=== PATIENT | female | born 1985 | race Caucasian/White ===

== ENCOUNTER 2018-02-19 12:09 | Emergency (ER) | payer OTHER, MEDICAID ==
[~2018-02-19] VITALS: Ht 154.9 cm; Wt 68.0 kg
[~2018-02-19 12:09] MED LIST: AFRIN15 ML NS; BACTRIM DS TAB1 EACH PO; FLEXERIL PO; IBUPROFEN 800800 MG PO; LEXAPRO 10 MG T10 M2 PO; MICROGESTIN FE1 EAC1; NOHOMEMEDICATIONS; NORCO 5-325 TA1 EACH PO; ONDANSETRON HCL4 M2 PO; PERCOCET 5-3251 EACH PO; PERCOCET 7.5-31 EACH PO; PHENERGAN 25 MG25 M1 PO; PHENERGAN25 M2 RC; PROMETHAZINE D480 ML PO; TESSALON PERLE100 MG PO; ULTRAM 50MG TAB50 MG PO; XANAX 0.25 MG0.25 MG PO; ZPAK PO
[2018-02-19] MEDS ORDERED: XANAX 0.5 MG0.5 MG PO (12:30)
[2018-02-19] MEDS ORDERED: CLEOCIN HCL150 MG PO (12:53)
[2018-02-19] MEDS ORDERED: ACETAMINOPHEN-1 EAC1 PO (12:53)
[2018-02-19] MEDS ORDERED: LIDOCAINE VISC100 ML PO (12:53)
[2018-02-19] MEDS ORDERED: ZOFRAN4 MG PO (12:59)
[2018-02-19 13:35] VITALS: BP 124/88
== END 2018-02-19 13:35 | disposition home or self-care (01) ==
LOC: M.ERS 12:09
DX: K08.89 Other specified disorders of teeth and supporting structures (principal); R11.0 Nausea; F32.9 Major depressive disorder, single episode, unspecified; F41.9 Anxiety disorder, unspecified; Z88.0 Allergy status to penicillin; Z88.5 Allergy status to narcotic agent

== ENCOUNTER 2020-06-30 23:05 | Emergency (ER) | payer OTHER ==
[~2020-06-30] VITALS: Ht 170.2 cm; Wt 83.9 kg
[~2020-06-30 23:05] MED LIST changes: +ACETAMINOPHEN-1 EAC1 PO; +CLEOCIN HCL150 MG PO; +LIDOCAINE VISC100 ML PO; +XANAX 0.5 MG0.5 MG PO; +ZOFRAN4 MG PO
[2020-06-30 23:21] LABS: URINE BILIRUBIN NEGATIVE (Negative); URINE BLOOD TRACE (Negative); URINE CLARITY CLEAR; URINE COLOR STRAW; URINE GLUCOSE-RANDOM 1+ (Negative); URINE KETONES TRACE (Negative); URINE LEUKOCYTES-REFLEX NEGATIVE (Negative); URINE NITRITE-REFLEX NEGATIVE (Negative); URINE PROTEIN NEGATIVE (Negative); URINE UROBILINOGEN 0.2 E.U./dl (0.2-1.0)
[2020-06-30 23:28] LABS: AMP/METHAMP Negative (Negative); BARBITURATES Negative (Negative); BENZODIAZEPINES POSITIVE (Negative); COCAINE Negative (Negative); METHADONE Negative (Negative); OPIATES Negative (Negative); PCP Negative (Negative); THC Negative (Negative)
[2020-06-30 23:40] LABS: ABSOLUTE EOSINOPHILS 0.1 thou/uL (0.0-0.7); ABSOLUTE LYMPHOCYTES 4.4 thou/uL (0.8-5.3); ABSOLUTE MONOCYTES 0.8 thou/uL (0.0-1.2); ABSOLUTE NEUTROPHILS 8.6 thou/uL (1.6-8.1); BASOPHILS 0.3 %; EOSINOPHILS 0.9 %; HEMATOCRIT 41.5 % (37.0-47.0); HEMOGLOBIN 13.9 gm/dL (12.0-15.0); LYMPHOCYTES 31.3 %; MCH 30.9 pg (26.0-34.0); MCHC 33.5 g/dL (28.0-37.0); MCV 92.1 fL (80.0-100.0); MONOCYTES 5.9 %; MPV 8.8 fl. (7.2-11.1); NUCLEATED RBCS 0 /100WBC; PLATELET COUNT* 284 thou/uL (150-400); POLYS 61.6 %; RBC 4.51 mil/uL (4.20-5.00); RDW-CV 12.4 % (10.5-14.5)
[2020-06-30 23:45] LABS: PROTIME 10.4 Seconds (9.20-11.50)
[2020-06-30 23:48] LABS: BE -9.3 mmol/L (-2 to +3); PCO2 34.5 mmHg (35.0-45.0)
[2020-06-30 23:50] LABS: PO2 207.5 mmHg (75.0-100.0); pH 7.291 (7.340-7.450)
[2020-06-30 23:53] LABS: CALCIUM 8.5 mg/dL (8.5-10.1); CREATININE 0.9 mg/dL (0.6-1.3)
[2020-06-30 23:54] LABS: ALCOHOL 10 mg/dL (<10); SALICYLATE < 2.8 mg/dL (2.8-20.0)
[2020-06-30 23:56] LABS: ACETAMINOPHEN < 2 ug/mL (10-30)
[2020-07-01 00:03] LABS: ALBUMIN 4.2 g/dL (3.4-5.0); TOTAL BILIRUBIN 0.4 mg/dL (<0.1-1.0); TOTAL PROTEIN 8.3 g/dL (6.4-8.2)
[2020-07-01 02:50] VITALS: BP 147/90
--- NOTE | 2020-07-01 12:47 | EKG ---
[place] [address] ELECTROCARDIOGRAM REPORT Name: PADMINI MCDONALD Room: [facility]#: [id number] Admission: 06/30/20 Attend Phys: Discharge: 07/01/20 Date of : 87 Date of Service: 06/30/202302 Report #: [id number] THIS REPORT FOR: //name// [facility] ED Test Date: 2020-06-30 Test Time: 23:03:26 Pat Name: PADMINI MCDONALD Department: Room: Gender: Business Office Representative: [place] : 1985 Requested By: Lanny Butts Order Number: [id number] MD: Doug Prabhakar Measurements Intervals [place] Rate: 117 P: 16 [place]: 141 QRS: -17 QRSD: 106 T: 57 QT: 351 QTc: 490 Interpretive Statements Sinus tachycardia Borderline left axis deviation RSR' in V1 or V2, probably normal variant Borderline prolonged QT interval No previous ECG available for comparison Electronically Signed On 07-01-2020 12:47:30 [employer]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
== END 2020-07-01 02:50 | disposition home or self-care (01) ==
LOC: M.ERS 23:05
PROVIDERS: Emergency Medicine
DX: T42.4X1A Poisoning by benzodiazepines, accidental (unintentional), initial encounter (principal); Z20.828 Contact with and (suspected) exposure to other viral communicable diseases; R40.4 Transient alteration of awareness; R79.1 Abnormal coagulation profile; Z88.0 Allergy status to penicillin; Z88.6 Allergy status to analgesic agent; Y92.89 Other specified places as the place of occurrence of the external cause